=== PATIENT | male | born 1965 | race Hispanic/Latino ===

== ENCOUNTER → 2023-06-11 | Outpatient (CLI) | payer OTHER ==
[~2023-06-11] MED LIST: ASPI-1005 PO; CARV3.1262 PO; CLIN-141 PO; CLOP-31 PO; GLIM2TAB30 PO; Isosorbide Mono 60MG Sr Tab PO; LOSA-417 PO; METF-446 PO; ROSU40TA21 PO
== END | disposition home or self-care (01) ==
LOC: RAH 10:16
PROVIDERS: ATTEND Internal Medicine
DX: I65.23 Occlusion and stenosis of bilateral carotid arteries (principal); R42 Dizziness and giddiness
CPT/HCPCS: 93880

== ENCOUNTER → 2024-08-29 | Outpatient (CLI) | payer OTHER ==
[~2024-08-29] MED LIST changes: -ROSU40TA21 PO; +ROSU40TA88 PO
--- NOTE | 2024-08-29 15:51 | HMCIMG ---
Exam: NONCONTRAST CT BRAIN REASON: OTHER AMNESIA. COMPARISON: None. TECHNIQUE: Images are obtained from vertex to the skull base. The exam was performed without IV contrast. FINDINGS: There is normal appearing brain parenchyma. There are no focal mass lesions. There is is no evidence of intracranial hemorrhage or acute stroke. Ventricles and sulci appear normal. Posterior fossa and brainstem structures are unremarkable. Paranasal sinuses and remaining extracranial soft tissues appear normal as well. IMPRESSION: 1. Normal noncontrast CT brain. CT was performed with one or more following dose reduction techniques: automated exposure control, adjustment of the mA and kv according to patient's size, or use of a iterative reconstruction technique.
== END | disposition home or self-care (01) ==
LOC: RAH 14:35
PROVIDERS: ATTEND Internal Medicine
DX: R41.3 Other amnesia (principal)
CPT/HCPCS: 70450